=== PATIENT | male | born 1970 | race Caucasian/White ===

== ENCOUNTER 2017-04-01 05:56 | Emergency (ER) | payer BC ==
[~2017-04-01] VITALS: Ht 167.6 cm; Wt 95.3 kg
[2017-04-01 06:00] VITALS: BP_SYST 170
== END 2017-04-01 08:17 | disposition home or self-care (01) ==
LOC: SED 05:56
DX: M54.32 Sciatica, left side (principal)
CPT/HCPCS: 99283